=== PATIENT | male | born 1980 | race Caucasian/White ===

== ENCOUNTER 2019-11-30 11:41 | Emergency (ER) | payer MEDICARE, MEDICAID, SELFPAY ==
[2019-11-30 11:43] VITALS: BP 162/84; PULSE 59; RESP 18; TEMP 36.6; O2SAT 99
--- NOTE | 2019-11-30 12:39 | ED.SKABFB ---
HPI - Skin/Abscess/Foreign Bdy General Chief complaint: Skin/Abscess/Foreign Body Stated complaint: Poss infection right ear Time Seen by Provider: 11/30/19 12:29 Source: patient and family Mode of arrival: ambulatory Limitations: no limitations History of Present Illness HPI narrative: This is a 39 year old male that presents to the ER for right ear swelling x 6 months. Family friend is with patient who reports patient has history of mental disability and lives with his elderly parents. He has not had his ear evaluated yet. Patient reports the ear is not painful. He reports some blood draining from the area at times. Family friend cut his hair yesterday and noted that the ear was becoming red, which prompted him to bring patient to the ED. Denies fever or drainage of pus. Related Data Allergies Allergy/AdvReac Type Severity Reaction Status Date / Time No Known Allergies Allergy Verified 11/30/19 11:52 Review of Systems Review of Systems: Narrative: CONSTITUTIONAL: Denies fever ENT: Denies otalgia. SKIN: Reports erythema All systems reviewed & are unremarkable except as noted in HPI and below PMFSH Past Medical History Medical History (Updated 11/30/19 @ 14:55 by Mayra Haro PA-C) Mental disability Social History Social History (Updated 11/30/19 @ 13:20 by Mayra Haro PA-C) Smoking status: Never smoker Exam Narrative: Exam Narrative: GENERAL: Well-appearing, well-nourished, and in no acute distress. HEAD: Normocephalic, atraumatic. EYES: EOMI. ENT: Bilateral TMs pearly sanders non-bulging. Left ear cartilage with moderate edema and erythema, with central scabbed region with mild oozing of blood NECK: Supple. No adenopathy or masses. EXTREMITIES: Normal range of motion. No edema. SKIN: Warm, dry, no rash. NEURO: No focal deficits. Alert and oriented x3. PSYCH: Normal mood and affect Course Vital Signs Vital signs: Vital Signs Temperature 97.8 F 11/30/19 11:43 Pulse Rate 59 L 11/30/19 11:43 Respiratory Rate 18 11/30/19 11:43 Blood Pressure 162/84 H 11/30/19 11:43 Pulse Oximetry 99 11/30/19 11:43 Temperature 97.8 F 11/30/19 11:43 Pulse Rate 59 L 11/30/19 11:43 Respiratory Rate 18 11/30/19 11:43 Blood Pressure 162/84 H 11/30/19 11:43 Pulse Oximetry 99 11/30/19 11:43 MDM - Skin/Abscess/Foreign Bdy MDM Narrative Medical decision making narrative: Patient presents the emergency department for right ear cartilage swelling x6 months. Right ear cartilage swollen with central nodule with scab overlying. Patient's ear mildly erythematous as well. Spoke with Dr. Ludwig about patient and work-up who reports this could possibly be a skin cancer that needs to be removed. Patient will also be started on Keflex. Patient is to follow-up with plastics outpatient. He was given warnings to return to the ER Lab Data Attestation: I reviewed the patient's lab results. Result diagrams: 11/30/19 12:57 11/30/19 12:57 Labs: Lab Results 11/30/19 11/30/19 Range/Units 12:57 12:57 WBC 7.0 (4.5-10.0) K/mm3 RBC 5.45 (4.6-6.20) M/mm3 Hgb 16.2 (14.0-18.0) g/dL Hct 47.6 (42.0-52.0) % MCV 87.3 (80-100) fl MCH 29.7 (26-34) pg MCHC 34.0 (32-36) g/dl RDW 12.3 (11.5-14.5) % Plt Count 287 (150-375) k/mm3 MPV 9.4 (7.4-10.4) fl Immature Gran % (Auto) 0.6 H (0-0.5) % Neut % (Auto) 57.7 (45.5-73.1) % Lymph % (Auto) 29.2 (18.3-44.2) % [place] % (Auto) 9.7 H (2.6-8.5) % Eos % (Auto) 1.9 (0-4.4) % Baso % (Auto) 0.9 (0.2-1.2) % Lymph # (Auto) 2.05 (0.9-3.2) K/mm3 [place] # (Auto) 0.7 H (0.1-0.6) K/mm3 Eos # (Auto) 0.1 (0-0.3) K/mm3 Baso # (Auto) 0.1 (0.0-0.1) K/mm3 Abs Immat Gran (auto) 0.04 H (0.00-0.031) K/mm3 Absolute Neuts (auto) 4.1 (1.3-6.7) K/mm3 Absolute Nucleated RBC 0.0 (0.0-0.012) K/mm3 Nucleated RBC % 0.0 (0.0-0.2) % ESR 6 (0-20) mm/hr Sodium 139 (137-145)
[2019-11-30 13:03] LABS: Basophils Absolute Auto 0.1 K/mm3 (0.0-0.1); Basophils Percent Auto 0.9 % (0.2-1.2); Eosinophils Absolute Auto 0.1 K/mm3 (0-0.3); Eosinophils Percent Auto 1.9 % (0-4.4); Hematocrit 47.6 % (42.0-52.0); Hemoglobin 16.2 g/dL (14.0-18.0); Immature Granulocyte Absolute 0.04 K/mm3 (0.00-0.031); Immature Granulocyte Percent A 0.6 % (0-0.5); Lymphocytes Absolute Auto 2.05 K/mm3 (0.9-3.2); Lymphocytes Percent Auto 29.2 % (18.3-44.2); Mean Corpuscular Hemoglobin 29.7 pg (26-34); Mean Corpuscular Volume 87.3 fl (80-100); Mean Platelet Volume 9.4 fl (7.4-10.4); Monocytes Absolute Auto 0.7 K/mm3 (0.1-0.6); Monocytes Percent Auto 9.7 % (2.6-8.5); Neutrophils Absolute Auto 4.1 K/mm3 (1.3-6.7); Neutrophils Percent Auto 57.7 % (45.5-73.1); Platelet Count Result 287 k/mm3 (150-375); Red Blood Count 5.45 M/mm3 (4.6-6.20); Red Cell Distribution Width 12.3 % (11.5-14.5)
[2019-11-30 13:17] LABS: Blood Urea Nitrogen 10 mg/dL (9-20); CRP 0.6 mg/dL (<1.0); Calcium 8.9 mg/dL (8.4-10.2); Carbon Dioxide 25 mmol/L (22-30); Chloride 100 mmol/L (98-107); Estimated Glomerular Filt Rate > 60; Glucose 109 mg/dL (75-110); Potassium 4.2 mmol/L (3.4-5.0); Sodium 139 mmol/L (137-145)
[2019-11-30 13:29] LABS: Erythrocyte Sedimentation Rate 6 mm/hr (0-20)
[2019-11-30 15:42] VITALS: BP 142/74; PULSE 88
== END 2019-11-30 15:42 | disposition home or self-care (01) ==
PROVIDERS: Physician Assistant; Emergency Provider Emergency Medicine
DX: H61.031 Chondritis of right external ear (principal); F79 Unspecified intellectual disabilities
CPT/HCPCS: 36415; 80048; 85025; 85652; 86140; 99283

== ENCOUNTER 2019-12-18 00:37 | Day surgery (SDC) | payer MEDICARE, MEDICAID, SELFPAY ==
[2019-12-11 14:56] VITALS: BMI 22.8
--- NOTE | 2019-12-16 22:02 | HP_ITS ---
DATE OF SERVICE: DIAGNOSIS: Ulcerated neoplasm, right antihelix 1 cm. HISTORY: The patient is a 39-year-old male who is brought in by his neighbor who has been a friend of his for a long time. The patient needs help getting around and in comprehending some of our conversation. His concern was for an elevated neoplasm, nearly a centimeter in diameter on his right antihelix. The surrounding ear tissue was very edematous the day he came having a peau d'orange appearance and we biopsied that and that tissue was determined to be chronic inflammation. We are here to remove the nodule today. The patient is aware that he may need a skin graft to close this wound, possibly a wedge resection depending on the size of the tumor after frozen section. The patient is aware that he will have a donor site for a skin graft if that is needed. He wants to get this nodule off, it bothers him quite a bit. PAST MEDICAL HISTORY: ALLERGIES: HE HAS NO KNOWN ALLERGIES TO MEDICATIONS. MEDICATIONS: He recently was taking some cephalexin for his ear provided by his primary care physician. PAST SURGICAL HISTORY: He has had no other surgeries. REVIEW OF SYSTEMS: Otherwise negative except for evidence of slow mentation. FAMILY HISTORY: Noncontributory. SOCIAL HISTORY: He lives in [place]. He is brought in by his good friend. PHYSICAL EXAMINATION: GENERAL: He is alert, very good-natured adult male, appearing his age of 39, acting somewhat younger. He is 5 feet 10 inches, weighs 220 pounds. He is in no distress. HEENT: Unremarkable except for this ear on the right. There is no palpable adenopathy. CHEST: Clear to auscultation. HEART: Regular rate and rhythm by palpation. ABDOMEN: Soft, nontender. EXTREMITIES: Normal. ASSESSMENT: Ulcerated neoplasm of the right antihelix. PLAN: Excision with frozen section under local anesthetic at his request and wedge excision or full-thickness graft as indicated. D I MT: Tim
[2019-12-18] VITALS (13 sets, daily range): BP systolic 105–156; BP diastolic 54–90; PULSE 62–81; RESP 20–24; TEMP 36.3; O2SAT 93–99
--- NOTE | 2019-12-18 07:09 | WPDHPUPDATE1 ---
History and Physical Update Update Date/Time: 12/18/19 07:09 History and Physical has been reviewed, including an updated exam of the patient. There are NO changes in the patient's condition. Risks, benefits, and alternatives have been discussed and questions answered. Patient agrees to proceed with procedure.
[2019-12-18] MEDS: LIDO 1%/EPINEPHRINE 1:100,000 20 ML VIAL 3 ML INFILTRATE (17:10)
--- NOTE | 2019-12-18 19:00 | PM.OP ---
Procedure Note - Brief Procedure Note - Brief Date of procedure: 12/18/19 Pre-op diagnosis: Neoplasm Right Ear Post-op diagnosis: other (Malignancy of uncertain behavior right ear.) Procedure performed: 1.5 cm excision of malignancy of right ear with FS and FTSG 1.5 sq cm. Anesthesia: local Surgeon: Harrison Ludwig MD Manager Subway: Maksim Estimated blood loss (mL): 2 Drains: No Packing: No Pathology: yes Complications: No immediate complications Condition: stable Disposition: same day
--- NOTE | 2019-12-19 14:22 | P.OP_ITS ---
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 Description of procedure: The right ear of Mr. Skinner was marked while he was in the holding room. He was taken to the operating room and placed supine on the operating table. The right side of his Face and neck were prepped and draped in the usual fashion. A time-out was held and confirmed. The site was locally infiltrated with 1% lidocaine with epinephrine. The circular excision was carried out with just a couple of mm margin around the base of this nodular mass. The specimen was taken off to fluid the cartilage underlying it. The most superior aspect was marked with a suture for 12 o'clock. The specimen was sent for frozen section. 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 He indicated that all margins were free of tumor. A site on the right neck was selected for harvesting of a skin graft. The site was locally infiltrated with 1% lidocaine with epinephrine. The full-thickness graft was taken and carefully defatted. The donor site was closed with 4-0 Vicryl dermal stitches and a running 4-0 nylon to close the skin. The full- thickness graft was inset with 5 0 nylon including quilting stitches to close space. The wounds were dressed with bacitracin ointment. The patient was discharged home with a prescription for cephalexin antibiotics and tramadol for pain. Surgeon: Harrison Ludwig MD
== END 2019-12-18 19:35 | disposition home or self-care (01) ==
PROVIDERS: Visit Provider Plastic Surgery
PROC: (CPT 11442; principal; 2019-12-18 14:00)
DX: D48.5 Neoplasm of uncertain behavior of skin (principal)
CPT/HCPCS: 11442; 15260; 88305; 88331; 88332; A9270